=== PATIENT | male | born 1975 | race Caucasian/White ===

== ENCOUNTER → 2017-01-17 | Outpatient (CLI) | payer BC ==
[2014-05-15 14:50] VITALS: BP 116/55
--- NOTE | 2017-01-17 17:12 | RAD ---
CT of the abdomen and pelvis without contrast, 01/17/2017: History: Hematuria, abdominal pain Noncontrast scans were obtained through the urinary tract utilizing the renal stone protocol. This is a limited study for evaluation of the possibility of urinary tract calculi. There is mild bilateral renal cortical scarring. There are no intrarenal calculi. The renal collecting systems and ureters are not dilated. No ureteral calculus is seen. The urinary bladder is collapsed and not well delineated. The liver is of lower than normal density in a diffuse pattern compatible with fatty change. There is mild focal fatty sparing adjacent to the gallbladder fossa. The gallbladder is unremarkable. No pancreatic abnormality is seen. The spleen is of normal size. There is mild aortic calcific plaquing. No abdominal or pelvic adenopathy is seen. The bowel loops are not dilated. The appendix is visualized and shows no abnormality. No free fluid or free air is evident in the abdomen or pelvis. There is bilateral spondylolysis at L5 with a grade 1 spondylolisthesis at L5-S1. There is also moderate degenerative disc disease at this level. There is considerable bilateral foraminal encroachment at L5-S1. IMPRESSION: 1. No urinary tract calculi are identified. 2. Hepatic steatosis. 3. Bilateral spondylolysis at L5 with grade 1 spondylolisthesis at L5-S1. PQRS Compliance Statement: One or more of the following individualized dose reduction techniques were utilized for this examination: 1. Automated exposure control 2. Adjustment of the mA and/or kV according to patient size 3. Use of iterative reconstruction technique
== END | disposition home or self-care (01) ==
LOC: CT 16:11
PROVIDERS: ATTEND Family Medicine
DX: M43.07 Spondylolysis, lumbosacral region (principal); K76.0 Fatty (change of) liver, not elsewhere classified; R31.9 Hematuria, unspecified
CPT/HCPCS: 74176